=== PATIENT | female | born 1965 | race Caucasian/White ===

== ENCOUNTER 2021-06-28 11:23 | Emergency (ER) | payer MEDICAID ==
[~2021-06-28] VITALS: Ht 160 cm; Wt 72.6 kg
--- NOTE | 2021-06-28 11:45 | NUR ---
Dr Jane at bedside for MSE/RN assisting. Patient is AO x4, not in acute distress at rest, but during movement, appears to be in severe pain. Rates pain @ 10/10 during activity on R rib area right below the R breast. Pt with chronic pain issues in the spine area and neck, but denies pain from those area at this time. Denies SOB, chest pain. Pt fell yesterday, mechanical ground fall, denies hitting head, denies KO. Denies any blood thinners. Denies taking any medications for pain. She stated she went to [facility]/but was not seen by MD. No GI/ issues. No open skin noted or any redness to complaint areas or anywhere else in the body. VS stable. Will carryout MD orders after examination.
[2021-06-28] MEDS ORDERED: CYCL15CA23 PO (11:49)
[2021-06-28] MEDS ORDERED: OMEP20TA20 PO (11:49)
[2021-06-28] MEDS ORDERED: GABA300C PO (11:49)
[2021-06-28] MEDS: MORPHINE SULFATE 4 MG/1 ML DISP.SYRIN IM ONE (12:06)
[2021-06-28] MEDS: KETOROLAC TROMETHAMINE 60 MG INJ IM ONE (12:07)
[2021-06-28] MEDS ORDERED: MORPHINE SULFATE 4 MG/1 ML DISP.SYRIN ONE (12:11)
[2021-06-28] MEDS ORDERED: KETOROLAC TROMETHAMINE 60 MG INJ IM ONE (12:11)
[2021-06-28] MEDS ORDERED: IBUP800T54 PO (14:42)
[2021-06-28 14:54] VITALS: BP 131/92
--- NOTE | 2021-06-28 14:54 | NUR ---
Patient discharged to home in stable condition. Written and verbal after care instructions given. Patient verbalizes understanding of instructions. Stressed follow up or return to ER for worsening s/s. Ambulated out of ED in steady gait.
== END 2021-06-28 14:56 | disposition home or self-care (01) ==
LOC: ER 11:32
DX: R07.89 Other chest pain (principal); Z79.899 Other long term (current) drug therapy
CPT/HCPCS: 71101; 93005 ×2; 96372 ×2; 99284; J1885; J2270; A4663

== ENCOUNTER 2023-12-23 13:40 | Emergency (ER) | payer MEDICAID, OTHER ==
[~2023-12-23] VITALS: Ht 160 cm; Wt 72.6 kg
[~2023-12-23 13:40] MED LIST: CYCL15CA23 PO; GABA300C PO; HYDR-3972 PO; IBUP800T54 PO; METR500T PO; OMEP20TA20 PO; SULF1TAB48 PO
[2023-12-23] MEDS ORDERED: ACETAMINOPHEN ES 500 MG TABLET ONE (14:19)
[2023-12-23] MEDS ORDERED: IBUPROFEN 400 MG TABLET ONE (14:19)
[2023-12-23] MEDS: IBUPROFEN 400 MG TABLET PO ONE (14:28)
[2023-12-23] MEDS: ACETAMINOPHEN ES 500 MG TABLET PO ONE (14:28)
[2023-12-23] MEDS ORDERED: OXYC-128 PO (14:42)
[2023-12-23 14:52] VITALS: BP 122/78; TEMP 98; O2SAT 99
== END 2023-12-23 14:52 | disposition home or self-care (01) ==
LOC: ER 13:40
DX: S90.32XA Contusion of left foot, initial encounter (principal); K21.9 Gastro-esophageal reflux disease without esophagitis; Z79.1 Long term (current) use of non-steroidal anti-inflammatories (NSAID); Z79.899 Other long term (current) drug therapy; X58.XXXA Exposure to other specified factors, initial encounter; Y93.89 Activity, other specified; Y92.89 Other specified places as the place of occurrence of the external cause; Y99.8 Other external cause status
CPT/HCPCS: 73600; 73620; A4606; A4663; A9150

== ENCOUNTER 2024-02-26 15:29 | Emergency (ER) | payer OTHER ==
[~2024-02-26] VITALS: Ht 160 cm; Wt 72.6 kg
[~2024-02-26 15:29] MED LIST changes: +OXYC-128 PO
[2024-02-26] MEDS ORDERED: NAPR-1196 PO (15:56)
[2024-02-26] MEDS ORDERED: OXYC-133 PO (15:56)
[2024-02-26 17:32] VITALS: BP 131/91; TEMP 98; O2SAT 97
== END 2024-02-26 17:32 | disposition home or self-care (01) ==
LOC: ER 15:30
DX: S93.692A Other sprain of left foot, initial encounter (principal); K21.9 Gastro-esophageal reflux disease without esophagitis; Z79.891 Long term (current) use of opiate analgesic; Z79.1 Long term (current) use of non-steroidal anti-inflammatories (NSAID); Z79.899 Other long term (current) drug therapy; Z60.2 Problems related to living alone; X58.XXXA Exposure to other specified factors, initial encounter; Y93.89 Activity, other specified; Y92.89 Other specified places as the place of occurrence of the external cause; Y99.8 Other external cause status
CPT/HCPCS: 73630; A4606; A4663